=== PATIENT | female | born 1990 | race Caucasian/White ===

== ENCOUNTER 2018-01-24 11:04 | Emergency (ER) | payer OTHER ==
--- NOTE | 2018-01-24 11:59 | EDPHY ---
H & P Stated Complaint: tripped over cat on stairs 2 days ago/fell hitting head/no loc /has tello/nause Time Seen by Provider: 01/24/18 11:55 HPI/ROS: CHIEF COMPLAINT: Head injury HISTORY OF PRESENT ILLNESS: 27-year-old female with no anticoagulant use history arrives via private vehicle. Patient states that 2 days ago she was walking down the stairs, tripped on a CT, impacted her lumbar, thoracic and occipital head with positive headache knee, no LOC. She has been feeling "out of it" with mild nausea and progressive headache. 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 She has not impact her head but had a hyper extension moved to her head. No direct trauma to her head or neck. States that this seems to have exacerbated her head and other symptoms. REVIEW OF SYSTEMS: A ten point review of systems was performed and is negative with the exception of the items mentioned in the HPI PAST MEDICAL/SURGICAL HISTORY: no anticoagulant use, no relevant medical/ surgical history SOCIAL HISTORY: denies alcohol use at time of incident PHYSICAL EXAM 1) GENERAL: Well-developed, well-nourished, alert and oriented. Appears to be in no acute distress. Answering questions appropriately. 2) HEAD: Normocephalic, atraumatic, no hematoma no depression no abrasion. 3) HEENT: Pupils equal, round, reactive to light bilaterally. Negative Horners. Nasopharynx, oropharynx, clear. No deformity or angulation of nose. No septal hematoma. No rhinorrhea. No oral trauma. Ears bilaterally with normal tympanic membranes. No hemotympanum. No fluid or blood in the external auditory canal. No raccoon eyes. No Evangelista sign. Teeth are normally aligned with no gross malocclusion, TMJ bilaterally nontender, facial bones nontender including the zygomatic arch, maxilla mandible. 4) NECK: Cervical collar is on.Cervical collar is removed while holding inline traction and patient is unable to completely differentiate between true midline pain versus just lateral of midline pain.Cervical collar is replaced at that point. 5) LUNGS: Clear to auscultation bilaterally, no wheezes, no rhonchi, no retractions. No obvious signs of trauma. No chest wall pain. No flaring, no grunting. Moving symmetrically. No crepitus. 6) HEART: Regular rate and rhythm, 7) ABDOMEN: No guarding, no rebound, no focal tenderness, no peritoneal signs, no signs of trauma, no ecchymosis 8) MUSCULOSKELETAL: Moving all extremities, no focal areas of tenderness, no obvious trauma. 9) BACK: Positive midline thoracic, lumbar, sacral pain. No deformity. No visible signs of trauma. No ecchymosis. No midline vertebral tenderness, no fluctuance, no step-off, no obvious trauma, no visual or palpable abnormality. 10) SKIN: No laceration. No abrasion 11) NEURO: Awake, alert, and oriented to person, place and time. Answers questions appropriately. There were no obvious focal neurologic abnormalities. No cerebellar dysfunction. Cranial nerves 2 through to 12 intact. Normal steady gait. Upper and lower extremities bilaterally with strength 5 / 5, reflexes 2+. DIFFERENTIAL DIAGNOSIS: Not necessarily in any particular order, my differential diagnosis includes, but is not limited to, concussion, skull fracture, intraparenchymal contusion, subarachnoid, subdural and epidural hematoma. The patient understands that this diagnosis is provisional and can never be 100% accurate. - Personal History LMP (Females 10-55): 8-14 Days Ago Current Tetanus/Diphtheria Vaccine: Yes - Medical/Surgical History Hx Asthma: No Hx Chronic Respiratory Disease: No Hx Diabetes: No Hx Cardiac Disease: No Hx Renal Disease: No Hx Cirrhosis: No Hx Alcoholism: No Hx HIV/AIDS: No Hx Splenectomy or Spleen Trauma: No Other PMH: denies - Social History Smoking Status: Never smoked Constitutional: Initial Vital Signs Temperature (C) 36.8 C 01/24/18 11:09 Heart Rate 94 01/24/18 11:09 Respiratory Rate 16 01/24/18 11:09 Blood Pressure 110/92 H 01/24/18 11:09 O2 Sat (%) 97 01/24/18 11:09 O2 Delivery Mode Room Air Allergies/Adverse Reactions: codeine Allergy (Verified 01/24/18 11:09) doxycycline Allergy (Verified 01/24/18 11:09) Penicillins Allergy (Verified 01/24/18 11:08) Home Medications: Medication Instructions Recorded NK [No Known Home Meds] 01/24/18 Medical Decision Making - Diagnostics Imaging Results: Images reviewed by myself ED Course/Re-evaluation: 12:15 p.m.: Patient is complaining of progressive headache, positive midline C- spine, T-spine, L-spine, sacrum pain. Plan will be imaging studies. Patient states that she is not . Believe her to have decision-making capacity. Patient has no neurologic deficits. 1:49 p.m.: Re-evaluation. Discussed her negative imaging results. She remains neurologically intact no peripheral musculoskeletal neurologic complaints. Cervical collar has been removed. Able to perform range of motion without eliciting midline pain or peripheral paresthesia, weakness, numbness. Cervical collar removed. Plan will be discharged with head injury precautions instructions as well as cervical and back pain precautions instructions. Patient feels comfortable with this plan. Care of patient under supervision of secondary supervising physician Dr Jovel . Departure - Departure Disposition: Home, Routine, Self-Care Clinical Impression: Head injury due to trauma, Cervical strain, Thoracic spine pain, Lumbar spine strain Condition: Good Instructions: Cervical Strain (ED), Concussion (ED), Head Injury (ED), Low Back Strain (ED), Thoracic Back Strain (ED) Additional Instructions: ALTHOUGH THERE IS NO EVIDENCE OF SERIOUS HEAD INJURY AT THIS TIME, DELAYED SIGNS CAN APPEAR 24 TO 48 HOURS AFTER INJURY. PLEASE RETURN TO THE EMERGENCY DEPARTMENT (ED) IMMEDIATELY IF YOU HAVE INCREASED HEADACHE, PERSISTENT HEADACHE , VOMITING, WEAKNESS, CONFUSION OR VISUAL PROBLEMS. WE RECOMMEND THAT YOU DO NOT RESUME CONTACT SPORTS OR ACTIVITIES THAT TAKE COORDINATION OR BALANCE SUCH SKIING OR RIDING A BICYCLE UNTIL CLEARED TO DO SO BY YOUR DOCTOR OR BY A NEUROLOGIST. Return to the ER immediately if you experience new or worsening neck pain, dizziness, visual disturbance, double vision, lightheadedness, facial droop, or any other symptoms that concern you. Avoid deep tissue massage and chiropractic manipulation, until symptom-free, and cleared by your regular health care provider. Referrals: Cathy Ayala MD [Medical Doctor] - 1-2 days without fail
[2018-01-24] MEDS ORDERED: IBUPROFEN 600 MG TAB PO ONE (12:27)
[2018-01-24 14:06] VITALS: BP 127/85
== END 2018-01-24 14:02 | disposition home or self-care (01) ==
DX: S09.90XA Unspecified injury of head, initial encounter (principal); S16.1XXA Strain of muscle, fascia and tendon at neck level, initial encounter; S39.012A Strain of muscle, fascia and tendon of lower back, initial encounter; S29.9XXA Unspecified injury of thorax, initial encounter; W10.9XXA Fall (on) (from) unspecified stairs and steps, initial encounter; Y99.8 Other external cause status; Y93.89 Activity, other specified